=== PATIENT | male | born 1960 | race Caucasian/White ===

== ENCOUNTER 2016-07-14 05:26 | Day surgery (SDC) | payer OTHER ==
[~2016-07-14] VITALS: Ht 172.7 cm; Wt 97.3 kg
[~2016-07-14 05:26] MED LIST: ANTIBIOTICS; PANT40TA4 PO
[2016-07-14 06:21] VITALS: Ht 172.7 cm; Wt 97.3 kg
[2016-07-14] MEDS ORDERED: TRAMADOL PRN (06:35)
[2016-07-14 06:52] VITALS: BP 112/67; PULSE 52; RESP 16
[2016-07-14] MEDS ORDERED: FENTAnyl 50 MCG/ML VIAL ONE (08:06)
[2016-07-14] MEDS ORDERED: MIDAZOLAM 1 MG/ML 2 ML INJ ONE (08:06)
[2016-07-14 08:25] VITALS: BP 97/69; RESP 20
--- NOTE | 2016-07-14 13:44 | GILP ---
DATE OF PROCEDURE: NAME OF PROCEDURE: Colonoscopy and biopsy. SURGEON: Richar Nunez MD PREOPERATIVE DIAGNOSIS: Screening colonoscopy. POSTOPERATIVE DIAGNOSES: 1. Colonoscopy all the way to the cecum. 2. Internal hemorrhoids. 3. Random biopsies were taken to rule out microscopic colitis. INDICATION FOR THE PROCEDURE: Mr. Max Arroyo is a 55-year-old male patient who was sche duled for screening colonoscopy. The patient also had history of diarrhea. The procedure and possible complications are well explained to the patient. The patient understood and consented to the procedure. DESCRIPTION OF PROCEDURE: Under the influence of fentanyl and Versed, the colonoscope was carefully introduced in the rectum and under direct vision it was advanced all the way to the cecum. FINDINGS: The patient had internal hemorrhoids. No other abnormality was detected. Random biopsie s were taken to rule out microscopic colitis. He tolerated the procedure very well, and there was no complication from the procedures. At the end of the procedure, he was awake with stable vital signs and he was discharged home to the care of hi s family. IMPRESSION: 1. Colonoscopy all the way to the cecum. 2. Internal hemorrhoids. 3. Random biopsies were taken to rule out microscopic colitis. PLAN: 1. Await histopathology report. 2. Next screening colonoscopy in 10 years. Dictated By: RICHAR WATSON/LAKEISHA Conf#: [id number] DID#: [id number]
== END 2016-07-14 09:40 | disposition home or self-care (01) ==
LOC: GIL 05:26
PROVIDERS: ATTEND Internal Medicine Gastroenterology
DX: Z12.11 Encounter for screening for malignant neoplasm of colon (principal); K64.8 Other hemorrhoids
CPT/HCPCS: 45378; 88305; J2250; J3010; Z7610